=== PATIENT | male | born 1970 | race Caucasian/White ===

== ENCOUNTER 2024-08-02 08:37 | Outpatient (CLI) | payer BC, SELFPAY ==
--- NOTE | ~2024-08-02 | CT_ITS ---
CT Scan of the Chest without Contrast: Clinical Indication: Lung cancer screening, nicotine dependence Technique: Contiguous sections were acquired throughout the chest without intravenous contrast. Dose reduction technique was used on this scan by utilizing automated exposure control and iterative recon struction technique. The dose-length product (DLP) was 111.94 mGy-cm. Findings: There is no evidence of any significant mediastinal, hilar or axillary lymphadenopathy. The mediastin al soft tissues appear normal. There is no evidence of pleural or pericardial effusion. There are areas of minimal linear scarring towards the lung bases. No discrete pulmonary nodule evide nt. Images through the upper abdomen reveal no abnormalities. Impression: Lung RADS 1: Negative. 12 month follow-up screening CT advised. Reviewed, dictated and finalized at location . Impression: Lung RADS 1: Negative. 12 month follow-up screening CT advised.
== END 2024-08-02 08:38 | disposition home or self-care (01) ==
LOC: MICIMG 08:39
PROVIDERS: PCP Family Medicine; Visit Provider Family Medicine
DX: Z12.2 Encounter for screening for malignant neoplasm of respiratory organs (principal); F17.210 Nicotine dependence, cigarettes, uncomplicated
CPT/HCPCS: 71271

== ENCOUNTER 2024-10-18 01:41 | Day surgery (SDC) | payer BC, SELFPAY ==
[2024-09-30 10:49] VITALS: BMI 28.0
[2024-10-18 06:50] VITALS: BP 133/87; PULSE 78; RESP 18; TEMP 36.4; O2SAT 100; BMI 27.4
[2024-10-18] MEDS: LACTATED RINGERS 1,000 ML 150 ML IV CONT (07:09)
--- NOTE | 2024-10-18 07:11 | P.PNAN_ITS ---
Anes - Initial Pre Proc Eval Procedure: Operation Date: 10/18/24 08:00 Proposed Procedures p Screening Colonoscopy - Joe Gonzalez MD Date/Time: 10/18/24 07:11 Surgeon: Joe Gonzalez MD Pre Op Diagnosis: Screening for malignant neoplasm of colon Patient Data Age: 54 Gender: M Height: 1.78 m Weight: 86.8 kg Last Vital Signs Temp 36.4 C L 10/18/24 06:50 Pulse 78 10/18/24 06:50 Resp 18 10/18/24 06:50 BP 133/87 10/18/24 06:50 Pulse Ox 100 10/18/24 06:50 O2 Del Method Room Air 10/18/24 06:50 Allergies Allergy/AdvReac Type Severity Reaction Status Date / Time No Known Allergies Allergy Verified 10/18/24 06:55 Home Medications ?Medication ?Instructions ?Recorded ?Confirmed ?Type loratadine 10 mg tablet (Claritin) 10 mg PO DAILY 10/18/19 10/18/24 History atorvastatin 10 mg tablet 10 mg PO DAILY #90 tabs 08/02/24 10/18/24 Rx bupropion HCl 150 mg tablet,12 hr 150 mg PO BID 30 days #60 tabs 08/17/24 10/18/24 Rx sustained-release (Wellbutrin SR) Patient hx anesthesia problems: none Family hx anesthesia problems: none Results Review: All pre-operative results and documents have been reviewed as part of the pre- operative evaluation. [facility], [facility] Past Medical History Medical History Environmental allergies Chronic back pain Elevation of cardiac enzymes 2011 - negative History of EKG 2011 - normal Intermittent low back pain Elevated liver enzymes 2013 Fatty infiltration of liver 2013 Surgical History Surgical History [place] teeth extracted mid 30's History of liver biopsy 2013 Family History Family History Other Hypertension Social History Social History Smoking packs per day: 1 Smoking cigarettes per day: 20.0 Years smoked: 32 Smoking pack-years: 32.00 Smoking status: Current some day smoker Tobacco type: cigarettes Second hand tobacco smoke exposure: Yes Alcohol intake: never Substance use: current Substance use type: marijuana Anes - Eval Final PreProcedure Day of Procedure 10/18/24 07:11 Patient weight: overweight Heart: regular rate and rhythm Lungs: clear to auscultation Airway: Mallampati scale class II Neurological: alert and oriented Last oral intake: >/= 8 hours ASA classification: II Emergent: no Anesthetic plan: proceed Anesthesia type and monitoring: general GIVS and standard monitoring Results Review: All pre-operative results and documents have been reviewed as part of the pre- operative evaluation. Informed Consent: The patient's anesthetic plan and its attendant risks and benefits were discussed with the patient/family/POA. Questions were solicited and answers provided to the satisfaction of the patient/family/POA.
--- NOTE | 2024-10-18 08:00 | PM.IMHP ---
H&P: HPI History of Present Illness Date/Time: 10/18/24 08:00 Chief Complaint: Screening colonoscopy Narrative: This is the patient's first colonoscopy. There are no GI symptoms and there is no family history of colorectal cancer. Review of Systems Review of Systems: All systems reviewed & are unremarkable except as noted in HPI and below PMFSH Past Medical History Medical History Environmental allergies Chronic back pain Elevation of cardiac enzymes 2011 - negative History of EKG 2011 - normal Intermittent low back pain Elevated liver enzymes 2013 Fatty infiltration of liver 2013 Surgical History Surgical History [place] teeth extracted mid 30's History of liver biopsy 2013 Family History Family History Other Hypertension Social History Social History Smoking packs per day: 1 Smoking cigarettes per day: 20.0 Years smoked: 32 Smoking pack-years: 32.00 Smoking status: Current some day smoker Tobacco type: cigarettes Second hand tobacco smoke exposure: Yes Alcohol intake: never Substance use: current Substance use type: marijuana Meds Home Medications and Allergies Home Medications ?Medication ?Instructions ?Recorded ?Confirmed ?Type loratadine 10 mg tablet (Claritin) 10 mg PO DAILY 10/18/19 10/18/24 History atorvastatin 10 mg tablet 10 mg PO DAILY #90 tabs 08/02/24 10/18/24 Rx bupropion HCl 150 mg tablet,12 hr 150 mg PO BID 30 days #60 tabs 08/17/24 10/18/24 Rx sustained-release (Wellbutrin SR) Allergies Allergy/AdvReac Type Severity Reaction Status Date / Time No Known Allergies Allergy Verified 10/18/24 06:55 Vital Signs Vital Signs - 24 hr 10/18/24 06:50 Temperature 97.5 F L Pulse Rate 78 Respiratory Rate 18 Blood Pressure 133/87 Pulse Oximetry 100 Oxygen Delivery Room Air Exam Const: General: cooperative and healthy appearing Resp: Effort & Inspection: normal respiratory effort and able to speak in complete sentences Auscultation: clear to auscultation bilaterally Cardio: Rate: regular rate Rhythm: regular rhythm GI: Inspection: normal to inspection GI Palp: No No hepatosplenomegaly present Auscultation: normal bowel sounds Rectal Exam: deferred Skin: General skin exam: normal color Psych: Appearance: grossly normal Mental Status: mental status grossly normal Assessment and Plan Assessment and plan (1) Encounter for screening colonoscopy: Code(s): Z12.11 - Encounter for screening for malignant neoplasm of colon Status: Acute Assessment and Plan: The patient is deemed a good candidate for the procedure. Consent signed. Will proceed.
[2024-10-18] MEDS: SIMETHICONE ORAL SUSPENSION 20 MG/0.3 ML 30 ML BOTTLE 0.6 ML IRRIGATION (08:13)
[2024-10-18 08:28] VITALS: BP 101/68; PULSE 67; RESP 13; O2SAT 100
[2024-10-18 08:38] VITALS: BP 105/68; PULSE 66; RESP 13; O2SAT 100
[2024-10-18 08:48] VITALS: BP 153/93; PULSE 73; RESP 19; O2SAT 100
== END 2024-10-18 09:01 | disposition home or self-care (01) ==
PROVIDERS: PCP Family Medicine; Referring Provider Family Medicine; Visit Provider Internal Medicine Gastroenterology
PROC: 0DJD8ZZ Inspection of Lower Intestinal Tract, Via Natural or Artificial Opening Endoscopic (ICD-10-PCS; CPT 45378; principal; 2024-10-18 08:00)
DX: Z12.11 Encounter for screening for malignant neoplasm of colon (principal); G89.29 Other chronic pain; M54.9 Dorsalgia, unspecified; F17.210 Nicotine dependence, cigarettes, uncomplicated; F12.90 Cannabis use, unspecified, uncomplicated; Z98.890 Other specified postprocedural states
CPT/HCPCS: 45378; J2003; J2704; J7120